=== PATIENT | male | born 1930 | race African-American/Black ===

== ENCOUNTER 2018-06-06 14:36 | Inpatient (IN) | payer OTHER ==
--- NOTE | 2018-06-06 14:56 | PDOC ---
History of Present Illness - General Chief Complaint: Wound Stated Complaint: WOUND INFECTION Time Seen by Provider: 06/06/18 14:52 History Source: Patient, [facility] Records Exam Limitations: No Limitations - History of Present Illness Initial Comments: 06/06/18 14:53 88 YOM with h/o chronic right anterior leg wound (followed by Dr. Tylor Smart for wound care), PVD, BLE venous stasis ulcers, A-fib (on Xarelto), NIDDM, HTN, hypothyroidism, and asthma who was [facility]IB[facility] from [facility] for worsening chronic BLE wounds now with malodorous drainage. He has been on Bactrim DS since for this and is on a four-week course. He has chronic abdominal distention but denies any f/c/n/v/d/c, leg pain, lightheadedness, headache, chest pain, SOB , abdominal pain, or any other new recent symptoms. Past History - Past Medical History Allergies/Adverse Reactions: Allergies Allergy/AdvReac Type Severity Reaction Status Date / Time No Known Allergies Allergy Verified 04/22/18 11:32 Home Medications: Ambulatory Orders Breo Ellipta 200-25 Mcg INH 1 puff IH ASDIR PRN 02/06/18 Finasteride 5 mg PO DAILY 02/06/18 Furosemide 20 mg PO DAILY 02/06/18 Verapamil HCl [Verapamil ER] 180 mg PO DAILY 02/06/18 Fluticasone Propionate 50 mcg IH DAILY 04/01/18 Levothyroxine Sodium 50 mcg PO DAILY 04/01/18 Metformin HCl 500 mg PO BID 04/01/18 Montelukast Na 10 mg PO DAILY 04/01/18 Naproxen 220 mg PO DAILY PRN 04/01/18 Tamsulosin HCl 0.4 mg PO DAILY 04/01/18 Sulfamethoxazole/Trimethoprim [Bactrim Ds -] 1 tab PO BID 05/06/18 Rivaroxaban [Xarelto] 15 mg PO DAILY@1800 30 Days #30 tablet 06/13/18 Asthma: Yes Diabetes: Yes HTN: Yes - Suicide/Smoking/Psychosocial Hx Smoking History: Never smoked Review of Systems - Review of Systems Able to Perform ROS?: Yes Comments:: GEN: no fever, chills, malaise, generalized weakness, or weight change HEENT: no ear pain, sore throat, vision change, or eye pain CV: no chest pain, palpitations, lightheadedness, syncope, or edema RESP: no cough, wheezing, or SOB GI: no abdominal pain, nausea, vomiting, diarrhea, constipation, or white/black/ bloody stool : no dysuria, hematuria, incontinence, retention, bleeding, or discharge MSK: BLE ulcerations, otherwise no neck/back pain, muscle weakness/pain, or joint swelling/pain NEURO: no headache, seizure, vertigo, numbness, tingling, or focal weakness PSYCH: no substance use, no behavior change SKIN: see msk, otherwise no jaundice, no other rash ROS otherwise negative except as noted in HPI *Physical Exam - Vital Signs Initial Vital Signs Temp Pulse Resp BP Pulse Ox 97.5 F L 99 H 18 119/66 100 06/06/18 14:42 06/06/18 14:42 06/06/18 14:42 06/06/18 14:42 06/06/18 14:42 - Physical Exam Comments: GENERAL: well-appearing, very talkative, in good humor, A/Ox4, no distress, answers questions appropriately HEENT: PERRLA, EOMI, moist mucous membranes NECK/BACK: no midline ttp, no spinal stepoff or deformity, no hematoma, full ROM , neck supple CARDIOVASCULAR: regular rate/rhythm, normal S1S2, no MGR, strong peripheral pulses, capillary refill <2 seconds, extremities wwp, no edema LUNGS/RESPIRATORY: no respiratory distress, CTAB GI/ABDOMEN: symmetric [id number], normoactive BS, soft, no ttp, no midline pulsatile masses : no CVA tenderness EXTREMITIES: see skin exam; otherwise no acute muscle atrophy, no acute deformity SKIN: LLE>RLE diffuse lower leg ulceration from the ankle to the distal knee, circumferentially, with very malodorous, +active drainage, dressings in place on arrival to ED as malodorous and soaked with drainage, there is otherwise skin is warm and dry, no pallor, no jaundice, no rash, no bruising, no skin breakdown, no cuts, no lesions NEUROLOGICAL: GCS 15, CN II-XII grossly intact, 5/5 strength proximally and distally, no facial droop ED Treatment Course - LABORATORY CBC & Chemistry Diagram: 06/11/18 05:50 06/12/18 07:20 Medical Decision Making - Medical Decision Making 88 YOM Pt with PVD and chronic venous stasis ulcers p/w BLE malodorous drainage and redness. Being tx with Bactrim DS PO BID x4 weeks, started on 05/24/18, no improvement. Initial Vital Signs Temp Pulse Resp BP Pulse Ox 97.5 F L 99 H 18 119/66 100 06/06/18 14:42 06/06/18 14:42 06/06/18 14:42 06/06/18 14:42 06/06/18 14:42 Exam: As noted in Physical Exam section. DDX IBNLT: cellulitis, osteomyelitis, necrotizing soft tissue infection, sepsis , DVT, superficial venous thrombosis, CHF exacerbation, PVD, pulmonary HTN, etc W/U ordered: Labs as noted below TX ordered: vancomycin, Zosyn EKG: Reviewed; results as noted in ECG Review section. RAD/CHEST X-RAY PORTABLE* Chest: Sepsis A single AP view the chest is been obtained. There is a large heart, prominent knob, scoliosis, degenerative spine and shoulder changes but no sign of infiltrate or failure. There are no prior studies for comparison. The soft tissues are intact. Laboratory Tests 06/06/18 06/06/18 06/06/18 16:40 16:40 16:40 WBC 6.1 RBC 3.33 L Hgb 10.0 L Hct 29.4 L MCV 88.2 MCH 30.0 MCHC 34.0 RDW 17.2 H Plt Count 288 MPV 7.4 L Absolute Neuts (auto) 4.8 Neutrophils % 78.2 Lymphocytes % 7.3 L Monocytes % 9.8 Eosinophils % 4.4 Basophils % 0.3 Nucleated RBC % 0 PT with INR 14.40 H INR 1.22 H PTT (Actin FS) 31.4 Sodium 134 L Potassium 4.6 Chloride 101 Carbon Dioxide 25 Anion Gap 8 BUN 24 H Creatinine 1.4 H Creat Clearance w eGFR 48.05 Random Glucose 95 Lactic Acid Calcium 8.4 L Total Bilirubin 0.4 AST 39 H ALT 63 H Alkaline Phosphatase 249 H Creatine Kinase 235 Creatine Kinase Index 2.2 CK-MB (CK-2) 5.4 H Troponin I Total Protein 7.6 Albumin 3.0 L Blood Type Antibody Screen 06/06/18 06/06/18 06/06/18 16:40 16:40 16:40 WBC RBC Hgb Hct MCV MCH MCHC RDW Plt Count MPV Absolute Neuts (auto) Neutrophils % Lymphocytes % Monocytes % Eosinophils % Basophils % Nucleated RBC % PT with INR INR PTT (Actin FS) Sodium Potassium Chloride Carbon Dioxide Anion Gap BUN Creatinine Creat Clearance w eGFR Random Glucose Lactic Acid 1.5 Calcium Total Bilirubin AST ALT Alkaline Phosphatase Creatine Kinase Creatine Kinase Index CK-MB (CK-2) Troponin I < 0.02 Total Protein Albumin Blood Type O POSITIVE Antibody Screen Negative Dressings removed; replaced by master technician. 06/06/18 17:22 The Pt is unsafe for discharge at this time. They require further hospital observation, workup, and treatment. I spoke with Dr. Dixon; patient going to IP Med/Surg. I have put in consult orders for Drs. Smart and Aden at her request. *DC/Admit/Observation/Transfer Diagnosis at time of Disposition: Venous stasis ulcer Qualifiers: Venous stasis ulcer site: unspecified site Varicose vein presence: unspecified whether present Non-pressure ulcer stage: unspecified non-pressure ulcer stage Qualified Code(s): I83.009 - Varicose veins of unspecified lower extremity with ulcer of unspecified site Infected ulcer of skin Qualifiers: Non-pressure ulcer stage: unspecified non-pressure ulcer stage Qualified Code(s ): L98.499 - Non-pressure chronic ulcer of skin of other sites with unspecified severity - Discharge Dispostion Condition at time of disposition: Guarded Decision to Admit order: Yes - Prescriptions - Referrals - Patient Instructions - Post Discharge Activity
--- NOTE | 2018-06-06 16:09 | PDOC ---
Attending Attestation - Resident Resident Name: AndieWinifred - ED Attending Attestation I have performed the following: I have examined & evaluated the patient, The case was reviewed & discussed with the resident, I agree w/resident's findings & plan - HPI HPI: 06/06/18 16:03 88y/o M h/o PVD managed at wound clinic p/w worsening b/l (L worse than R) leg wounds and new malodorous discharge. no f/c per patient. - Physicial Exam PE: 06/06/18 16:09 Alert, speaking full sentences, no acute distress Bilateral lower extremities with chronic superficial ulcerations and venous stasis changes, dressings in place and taken down, the left lower extremity has extensive weeping of grayish discharge that is malodorous, there are multiple relatively superficial lesions without any focal deep ulceration, moving all joints distally. Feet are warm and perfused but unable to palpate a pulse - Medical Decision Making 06/06/18 16:10 88-year-old male with chronic lower extremity wounds presents now with likely acute infection, will need antibiotics and debridement. No evidence of acute ischemia. Sepsis protocol IV antibiotics vancomycin and Zosyn Admission
[2018-06-06] MEDS ORDERED: VANCOMYCIN 1 GRAM (PRE-DOCKED) 1,000 MG/250 ML BAG IVPB ONE ×2 (16:32→20:25)
[2018-06-06] MEDS ORDERED: PIPERACILLIN/TAZOB 4.5 GM 4.5 GM in DEXTROSE 5%-WATER 100 ML IVPB ONE (16:32)
[2018-06-06 17:02] LABS: BASO % 0.3 % (0-2.0); EOS % 4.4 % (0-4.5); HEMATOCRIT 29.4 % (35.4-49); LYMPH % 7.3 % (8-40); MEAN CELL VOLUME 88.2 fl (80-96); MEAN PLT VOLUME 7.4 fl (7.5-11.1); MONO % 9.8 % (3.8-10.2); NEUT % 78.2 % (42.8-82.8); PLATELET COUNT 288 K/MM3 (134-434); RBC 3.33 M/mm3 (4.00-5.60); RDW 17.2 % (11.9-15.9); WHITE BLOOD COUNT 6.1 K/mm3 (4.0-10.0)
[2018-06-06 17:12] LABS: INR 1.22 (0.83-1.09); PROTHROMBIN TIME (PATIENT) 14.4 SEC (9.7-13.0)
[2018-06-06 17:15] LABS: ACTIVATED PTT 31.4 SECONDS (25.2-36.5)
[2018-06-06 17:22] LABS: ALK PHOS 249 U/L (45-117); ANION GAP 8 MMOL/L (8-16); BILIRUBIN,TOTAL 0.4 mg/dL (0.2-1); BLOOD UREA NITROGEN 24 mg/dL (7-18); CALCIUM 8.4 mg/dL (8.5-10.1); CHLORIDE 101 mmol/L (98-107); CO2 25 mmol/L (21-32); CREATININE 1.4 mg/dL (0.55-1.3); GLUCOSE,RANDOM 95 mg/dL (74-106); POTASSIUM 4.6 mmol/L (3.5-5.1); SGOT/AST 39 U/L (15-37); SGPT/ALT 63 U/L (13-61); SODIUM 134 mmol/L (136-145); TOT PROT 7.6 g/dl (6.4-8.2)
[2018-06-06] MEDS ORDERED: PIPERACILLIN/TAZOB 4.5 GM 4.5 GM/100 ML BAG IVPB ONE (20:24)
[2018-06-07 02:58] VITALS: BMI 30.6
[2018-06-07 04:14] LABS: VENOUS PC02 39.8 mmHg (38-52); VENOUS PH 7.42 (7.32-7.42)
[2018-06-07] MEDS ORDERED: metFORMIN HCL 500 MG TABLET (FP) PO ONE (06:30)
[2018-06-07] MEDS: LEVOTHYROXINE NA 50 MCG TABLET (FP) PO SCH (06:44)
--- NOTE | 2018-06-07 10:40 | HP ---
Admitting History and Physical - Primary Care Physician PCP: Liza Dixon I - Admission History Source: Patient Limitations to Obtaining History: No Limitations - Past Medical History Cardiovascular: Yes: AFIB, HTN Pulmonary: Yes: Asthma Renal/: Yes: BPH Endocrine: Yes: Diabetes Mellitus, Hypothyroidism Dermatology: Yes: Cellulitis - Smoking History Smoking history: Never smoked Have you smoked in the past 12 months: No - Alcohol/Substance Use Hx Alcohol Use: No - Social History Usual Living Arrangement: Yes: Assisted Living History of Recent Travel: No Home Medications - Allergies Allergies/Adverse Reactions: Allergies Allergy/AdvReac Type Severity Reaction Status Date / Time No Known Allergies Allergy Verified 04/22/18 11:32 - Home Medications Home Medications: Ambulatory Orders Breo Ellipta 200-25 Mcg INH 1 puff IH ASDIR PRN 02/06/18 Finasteride 5 mg PO DAILY 02/06/18 Furosemide 20 mg PO DAILY 02/06/18 Verapamil HCl [Verapamil ER] 180 mg PO DAILY 02/06/18 Fluticasone Propionate 50 mcg IH DAILY 04/01/18 Levothyroxine Sodium 50 mcg PO DAILY 04/01/18 Metformin HCl 500 mg PO BID 04/01/18 Montelukast Na 10 mg PO DAILY 04/01/18 Naproxen 220 mg PO DAILY PRN 04/01/18 Robafen Dm Cough Liquid 10 ml PO Q8H PRN 04/01/18 Tamsulosin HCl 0.4 mg PO DAILY 04/01/18 Xarelto 20 mg PO DAILY 04/01/18 Sulfamethoxazole/Trimethoprim [Bactrim DS -] 1 tab PO BID 04/29/18 Sulfamethoxazole/Trimethoprim [Bactrim Ds -] 1 tab PO BID 05/06/18 Bactrim DS - 1 tab PO BID 05/27/18 Review of Systems - Review of Systems Constitutional: reports: No Symptoms Eyes: reports: No Symptoms HENT: reports: No Symptoms Neck: reports: No Symptoms Cardiovascular: reports: No Symptoms Respiratory: reports: No Symptoms Gastrointestinal: reports: No Symptoms Genitourinary: reports: No Symptoms Breasts: reports: No Symptoms Reported Musculoskeletal: reports: Muscle Weakness Integumentary: reports: Change in Color, Wound Neurological: reports: No Symptoms Endocrine: reports: No Symptoms Hematology/Lymphatic: reports: No Symptoms Psychiatric: reports: No Symptoms Physical Examination Vital Signs: Vital Signs Temperature 97.2 F L 06/07/18 05:51 Pulse Rate 115 H 06/07/18 05:51 Respiratory Rate 20 06/07/18 05:51 Blood Pressure 128/70 06/07/18 05:51 O2 Sat by Pulse Oximetry (%) 97 06/07/18 01:00 Constitutional: Yes: Well Nourished Eyes: Yes: Conjunctiva Clear HENT: Yes: Atraumatic, Normocephalic Neck: Yes: Supple, Trachea Midline Cardiovascular: Yes: Regular Rate and Rhythm Respiratory: Yes: Regular, CTA Bilaterally Gastrointestinal: Yes: Normal Bowel Sounds, Soft ...Rectal Exam: Yes: Deferred Renal/: Yes: WNL Breast(s): Yes: WNL Musculoskeletal: Yes: Muscle Weakness Extremities: Yes: Cool Edema: Yes Edema: LLE: 1+, RLE: 1+ Peripheral Pulses WNL: No Peripheral Pulses: Left Doralis Pedis: 0, Right Dorsalis Pedis: 0 Integumentary: Yes: Venous Stasis Changes Wound/Incision: Yes: Well Approximated Neurological: Yes: Alert, Oriented Psychiatric: Yes: Alert, Oriented Labs: CBC, BMP 06/06/18 16:40 06/06/18 16:40 Assessment/Plan 88 y/o male admitted for non-healing stasis ulcers despite local wd care and antibiotics. PMHX includes HTN, Asthma, NIDDM, Hypothyroidism, Afib, PVD and B/ L venous stasis ulcers. Admitted for IV antibiotics.
[2018-06-07] MEDS: FINASTERIDE 5 MG TABLET (FP) PO SCH (11:39)
--- NOTE | 2018-06-07 12:55 | PN ---
Progress Note (short form) - Note Progress Note: ID CONSULT DICTATED CELLULITIS L>R LE INFECTED CHRONIC VENOUS STASIS ULCERS AZOTEMIA AWAIT C/S EMPIRIC VANCOMYCIN/ ZOSYN WOUND CARE
--- NOTE | 2018-06-07 13:21 | CONS ---
DATE OF CONSULTATION: DATE OF DICTATION: 06/07/2018 HISTORY: The patient is an 88-year-old male with a history of longstanding chronic venostasis dermatitis and chronic venostasis ulcers of the lower extremities evaluated for cellulitis. [facility] for chronic venostasis dermatitis and also ulcerations. Over the past several days, he has noted increasing malodorous drainage from the wounds. He was noted to have cellulitis of the legs left greater than right. The patient had been on a course of Bactrim for the past 2 weeks. He denies any leg pain. No complaints of fever or chills. PAST MEDICAL HISTORY: Positive for peripheral vascular disease, bilateral chronic venostasis dermatitis and ulcers, [id number] diabetes mellitus, atrial fibrillation, hypertension, hypothyroidism, asthma. ALLERGIES: No known allergies. MEDICATIONS: Lasix, verapamil, levothyroxine, metformin, Naproxen, tamsulosin. SOCIAL HISTORY: He lives at [facility]. He denies active tobacco or alcohol use. SYSTEMS REVIEW: Neurologic: No loss of consciousness, seizure activity, focal weakness. Cardiac: Negative chest pain or palpitations. Respiratory: Negative cough or sputum production. Gastrointestinal: Negative vomiting or diarrhea. Genitourinary: Negative for urinary tract infection. LABORATORY DATA: White count 6.1, hematocrit 29.4, platelet count 288, BUN 24, creatinine 1.4, total bilirubin 0.4, alkaline phosphatase 249, AST 39, ALT 63. PHYSICAL EXAMINATION: General: On exam, he is awake and alert. He is not acutely toxic appearing. Vital Signs: Temperature 98.2, blood pressure 114/59, pulse 105 and regular, respirations 19 per minute. HEENT: Sclerae anicteric. Heart: Sounds S1, S2. Lungs: Clear. Abdomen: Soft. Nontender. Extremities: Examination of the lower extremities, bilateral lower extremity edema. Bilateral lower extremity chronic venostasis dermatitis and superficial ulcers. There is confluent erythema and warmth present from below the knee to the foot left greater than right lower extremity. There is some malodorous, serous drainage from the lower extremities. IMPRESSION: 1. Cellulitis lower extremities bilaterally. 2. Infected chronic venostasis ulcers. 3. Azotemia. PLAN: Cultures have been obtained. Empiric antibiotic coverage with vancomycin and Zosyn adjusted for renal insufficiency. Vascular evaluation/wound care. Thank you for the kind referral. GREG HODGSON M.D. [id number]
[2018-06-07] MEDS: TIOTROPIUM BROMIDE 2.5 MCG (SPIRIVA) RESPIMAT INHALER IH SCH (14:23)
[2018-06-07] MEDS ORDERED: PIPERACILLIN/TAZOBACTAM 2.25 GM VIAL IVPB ONE (15:21)
[2018-06-07] MEDS ORDERED: DEXTROSE 5%-WATER - 100 ML IVPB ONE (15:22)
[2018-06-07] MEDS: PIPERACILLIN/TAZOB 2.25 GM 2.25 GM in DEXTROSE 5%-WATER - 50 ML IVPB SCH ×2 (15:42→17:24)
[2018-06-07] MEDS: VANCOMYCIN 1 GRAM (PRE-DOCKED) 1,000 MG/250 ML BAG IVPB SCH (15:43)
[2018-06-07] MEDS ORDERED: PT OWN MED DRAWER 7, Y5N ONE ×2 (16:31→19:26)
[2018-06-07] MEDS: VERAPAMIL HCL SR 180 MG CAP SUSTAINED RELEASE PO SCH (16:43)
[2018-06-07] MEDS: RIVAROXABAN 15 MG TABLET PO SCH (19:34)
[2018-06-07] MEDS: MONTELUKAST NA 10 MG TABLET PO SCH (21:22)
[2018-06-07] MEDS ORDERED: VERAPAMIL HCL 80 MG TABLET PO SCH (22:00)
[2018-06-08] MEDS ORDERED: DEXTROSE 5%-WATER - 50 ML IVPB ONE ×3 (01:15→17:22)
[2018-06-08] MEDS ORDERED: PIPERACILLIN/TAZOBACTAM 2.25 GM VIAL IVPB ONE ×3 (01:15→17:22)
[2018-06-08] MEDS: PIPERACILLIN/TAZOB 2.25 GM 2.25 GM in DEXTROSE 5%-WATER - 50 ML IVPB SCH ×3 (01:37→17:37)
[2018-06-08] MEDS: LEVOTHYROXINE NA 50 MCG TABLET (FP) PO SCH (06:01)
[2018-06-08] MEDS ORDERED: PT OWN MED DRAWER 7, Y5N ONE (09:02)
[2018-06-08 09:04] LABS: BASO % 0.4 % (0-2.0); EOS % 14.2 % (0-4.5); HEMATOCRIT 33.4 % (35.4-49); HEMOGLOBIN 10.6 GM/dL (11.7-16.9); MCH 28.2 pg (25.7-33.7); MCHC 31.6 g/dl (32.0-35.9); MEAN CELL VOLUME 89.3 fl (80-96); MEAN PLT VOLUME 7.1 fl (7.5-11.1); NEUT % 54.4 % (42.8-82.8); PLATELET COUNT 288 K/MM3 (134-434); RBC 3.74 M/mm3 (4.00-5.60); RDW 17.1 % (11.9-15.9); WHITE BLOOD COUNT 4.3 K/mm3 (4.0-10.0)
[2018-06-08] MEDS: TAMSULOSIN HCL 0.4 MG CAP PO SCH (09:10)
[2018-06-08] MEDS: VERAPAMIL HCL SR 180 MG CAP SUSTAINED RELEASE PO SCH (09:10)
[2018-06-08] MEDS: FINASTERIDE 5 MG TABLET (FP) PO SCH (09:10)
[2018-06-08] MEDS: TIOTROPIUM BROMIDE 2.5 MCG (SPIRIVA) RESPIMAT INHALER IH SCH (09:13)
[2018-06-08 09:32] LABS: ANION GAP 6 MMOL/L (8-16); BLOOD UREA NITROGEN 17 mg/dL (7-18); CALCIUM 8.2 mg/dL (8.5-10.1); CHLORIDE 105 mmol/L (98-107); CO2 27 mmol/L (21-32); CREATININE 1.2 mg/dL (0.55-1.3); GLUCOSE,RANDOM 100 mg/dL (74-106); POTASSIUM 4.3 mmol/L (3.5-5.1); SODIUM 137 mmol/L (136-145)
[2018-06-08] MEDS: VANCOMYCIN 1 GRAM (PRE-DOCKED) 1,000 MG/250 ML BAG IVPB SCH (14:40)
--- NOTE | 2018-06-08 16:10 | PN ---
Progress Note (short form) - Note Progress Note: patient seen and examined in room has been OOB and ambuating in room and with PT Vital Signs Period Temp Pulse Resp BP Sys/Bose Pulse Ox Last 24 Hr 97.8 F-98.5 F 83-111 17-19 102-128/54-70 96-96 neck supple heart s1/S2 irreg lungs clear bilat abd soft non tender ext-- dry scaly skin mid inner thigh and distally dressing to both LE CBC, BMP 06/08/18 08:00 06/08/18 08:00 Microbiology 06/06/18 16:40 Blood - Peripheral Venous Blood Culture - Preliminary NO GROWTH OBTAINED AFTER 24 HOURS, INCUBATION TO CONTINUE FOR 4 DAYS. 06/06/18 16:40 Blood - Peripheral Venous Blood Culture - Preliminary NO GROWTH OBTAINED AFTER 24 HOURS, INCUBATION TO CONTINUE FOR 4 DAYS. Active Medications Finasteride (Proscar -) 5 mg PO DAILY [facility] Last Admin: 06/08/18 09:10 Dose: 5 mg Vancomycin HCl (Vancomycin (Pre-Docked)) 1,000 mg in 250 mls @ 200 mls/hr IVPB Q24H [facility]; Protocol Last Admin: 06/08/18 14:40 Dose: 200 mls/hr Piperacillin Sod/Tazobactam (Sod 2.25 gm/ Dextrose) 50 mls @ 100 mls/hr IVPB Q8H-IV [facility]; Protocol Last Admin: 06/08/18 09:10 Dose: 100 mls/hr Levothyroxine Sodium (Synthroid -) 50 mcg PO DAILY@0700 [facility] Last Admin: 06/08/18 06:01 Dose: 50 mcg Montelukast Sodium (Singulair -) 10 mg PO HS [facility] Last Admin: 06/07/18 21:22 Dose: 10 mg Rivaroxaban (Xarelto) 15 mg PO DAILY@1800 [facility] Last Admin: 06/07/18 19:34 Dose: 15 mg Tamsulosin HCl (Flomax -) 0.4 mg PO DAILY@0830 [facility] Last Admin: 06/08/18 09:10 Dose: 0.4 mg Tiotropium Ava (Spiriva Respimat) 2 puff IH DAILY [facility] Last Admin: 06/08/18 09:13 Dose: 2 puff Verapamil HCl (Verelan Sr Cap) 180 mg PO DAILY [facility] Last Admin: 06/08/18 09:10 Dose: 180 mg # cellulitis LE PVD / chronic venous stasis ulcer Failure of PO ABX Wound care IV ABX vascular counsult ID counsult # DM continue Home meds # afib continue a/c home meds for rate control # COPD stable continue home meds # Hypothyroid continue home meds TSH / T4
[2018-06-08] MEDS: RIVAROXABAN 15 MG TABLET PO SCH ×2 (17:37→17:56)
[2018-06-08] MEDS: MONTELUKAST NA 10 MG TABLET PO SCH (21:20)
[2018-06-08] MEDS: MINERAL OIL/PET HY-PHL TOPICAL OINTMENT 454 GM JAR TP SCH (21:20)
[2018-06-09] MEDS ORDERED: PIPERACILLIN/TAZOBACTAM 2.25 GM VIAL IVPB ONE ×3 (00:52→16:56)
[2018-06-09] MEDS ORDERED: DEXTROSE 5%-WATER - 50 ML IVPB ONE ×3 (00:53→16:56)
[2018-06-09] MEDS: PIPERACILLIN/TAZOB 2.25 GM 2.25 GM in DEXTROSE 5%-WATER - 50 ML IVPB SCH ×3 (02:57→17:18)
[2018-06-09] MEDS: LEVOTHYROXINE NA 50 MCG TABLET (FP) PO SCH (06:02)
[2018-06-09] MEDS: TAMSULOSIN HCL 0.4 MG CAP PO SCH (08:43)
[2018-06-09] MEDS ORDERED: PT OWN MED DRAWER 7, Y5N ONE ×2 (10:41→16:59)
[2018-06-09] MEDS: FINASTERIDE 5 MG TABLET (FP) PO SCH (10:45)
[2018-06-09] MEDS: MINERAL OIL/PET HY-PHL TOPICAL OINTMENT 454 GM JAR TP SCH ×2 (10:46→21:14)
[2018-06-09] MEDS: VERAPAMIL HCL SR 180 MG CAP SUSTAINED RELEASE PO SCH (10:46)
[2018-06-09] MEDS: TIOTROPIUM BROMIDE 2.5 MCG (SPIRIVA) RESPIMAT INHALER IH SCH (10:49)
[2018-06-09] MEDS: VANCOMYCIN 1 GRAM (PRE-DOCKED) 1,000 MG/250 ML BAG IVPB SCH (14:22)
[2018-06-09] MEDS: RIVAROXABAN 15 MG TABLET PO SCH (17:18)
--- NOTE | 2018-06-09 20:00 | PN ---
Progress Note (short form) - Note Progress Note: patient seen and examined in room has been OOB and ambuating in room and with PT legs less swollen / denies pain afebrile Vital Signs Period Temp Pulse Resp BP Sys/Bose Pulse Ox Last 24 Hr 97.4 F-98.3 F 83-91 18-20 100-133/58-66 91-96 neck supple heart s1/S2 irreg lungs clear bilat abd soft non tender ext-- dry scaly skin mid inner thigh and distally dressing to both LE less edema /chronic changes to LE CBC, BMP 06/08/18 08:00 06/08/18 08:00 Microbiology 06/06/18 16:40 Blood - Peripheral Venous Blood Culture - Preliminary NO GROWTH OBTAINED AFTER 72 HOURS, INCUBATION TO CONTINUE FOR 2 DAYS. 06/06/18 16:40 Blood - Peripheral Venous Blood Culture - Preliminary NO GROWTH OBTAINED AFTER 72 HOURS, INCUBATION TO CONTINUE FOR 2 DAYS. Active Medications Emollient Ointment (Aquaphor -) 1 applic TP BID [facility] Last Admin: 06/09/18 10:46 Dose: 1 applic Finasteride (Proscar -) 5 mg PO DAILY [facility] Last Admin: 06/09/18 10:45 Dose: 5 mg Vancomycin HCl (Vancomycin (Pre-Docked)) 1,000 mg in 250 mls @ 200 mls/hr IVPB Q24H [facility]; Protocol Last Admin: 06/09/18 14:22 Dose: 200 mls/hr Piperacillin Sod/Tazobactam (Sod 2.25 gm/ Dextrose) 50 mls @ 100 mls/hr IVPB Q8H-IV [facility]; Protocol Last Admin: 06/09/18 17:18 Dose: 100 mls/hr Levothyroxine Sodium (Synthroid -) 50 mcg PO DAILY@0700 [facility] Last Admin: 06/09/18 06:02 Dose: 50 mcg Montelukast Sodium (Singulair -) 10 mg PO HS [facility] Last Admin: 06/08/18 21:20 Dose: 10 mg Rivaroxaban (Xarelto) 15 mg PO DAILY@1800 [facility] Last Admin: 06/09/18 17:18 Dose: 15 mg Tamsulosin HCl (Flomax -) 0.4 mg PO DAILY@0830 [facility] Last Admin: 06/09/18 08:43 Dose: 0.4 mg Tiotropium [place] (Spiriva Respimat) 2 puff IH DAILY [facility] Last Admin: 06/09/18 10:49 Dose: 2 puff Verapamil HCl (Verelan Sr Cap) 180 mg PO DAILY [facility] Last Admin: 06/09/18 10:46 Dose: 180 mg # cellulitis LE PVD / chronic venous stasis ulcer Failure of PO ABX Wound care IV ABX vascular counsult appreciated # DM continue Home meds # afib continue a/c home meds for rate control # COPD stable continue home meds # Hypothyroid continue home meds TSH / T4
[2018-06-09] MEDS: MONTELUKAST NA 10 MG TABLET PO SCH (21:14)
[2018-06-10] MEDS ORDERED: PIPERACILLIN/TAZOBACTAM 2.25 GM VIAL IVPB ONE ×3 (00:30→17:17)
[2018-06-10] MEDS ORDERED: DEXTROSE 5%-WATER - 50 ML IVPB ONE ×3 (00:30→17:17)
[2018-06-10] MEDS: PIPERACILLIN/TAZOB 2.25 GM 2.25 GM in DEXTROSE 5%-WATER - 50 ML IVPB SCH ×3 (02:08→17:38)
[2018-06-10] MEDS: LEVOTHYROXINE NA 50 MCG TABLET (FP) PO SCH (07:29)
[2018-06-10] MEDS: TAMSULOSIN HCL 0.4 MG CAP PO SCH (09:00)
[2018-06-10] MEDS ORDERED: PT OWN MED DRAWER 7, Y5N ONE (09:54)
[2018-06-10] MEDS: VERAPAMIL HCL SR 180 MG CAP SUSTAINED RELEASE PO SCH (10:00)
[2018-06-10] MEDS: FINASTERIDE 5 MG TABLET (FP) PO SCH (10:00)
[2018-06-10] MEDS: MINERAL OIL/PET HY-PHL TOPICAL OINTMENT 454 GM JAR TP SCH ×2 (10:01→21:21)
[2018-06-10] MEDS: TIOTROPIUM BROMIDE 2.5 MCG (SPIRIVA) RESPIMAT INHALER IH SCH (10:02)
--- NOTE | 2018-06-10 12:34 | PN ---
Progress Note (short form) - Note Progress Note: patient seen and examined in room legs less swollen / denies pain afebrile Vital Signs Period Temp Pulse Resp BP Sys/Bose Pulse Ox Last 24 Hr 97.9 F-98.5 F 80-91 18-20 100-136/61-68 95 neck supple heart s1/S2 irreg lungs clear bilat abd soft non tender ext-- dry scaly skin mid inner thigh and distally dressing to both LE less edema /chronic changes to LE CBC, BMP 06/08/18 08:00 06/08/18 08:00 Microbiology 06/06/18 16:40 Blood - Peripheral Venous Blood Culture - Preliminary NO GROWTH OBTAINED AFTER 72 HOURS, INCUBATION TO CONTINUE FOR 2 DAYS. 06/06/18 16:40 Blood - Peripheral Venous Blood Culture - Preliminary NO GROWTH OBTAINED AFTER 72 HOURS, INCUBATION TO CONTINUE FOR 2 DAYS. . Active Medications Emollient Ointment (Aquaphor -) 1 applic TP BID [facility] Last Admin: 06/10/18 10:01 Dose: 1 applic Finasteride (Proscar -) 5 mg PO DAILY [facility] Last Admin: 06/10/18 10:00 Dose: 5 mg Vancomycin HCl (Vancomycin (Pre-Docked)) 1,000 mg in 250 mls @ 200 mls/hr IVPB Q24H [facility]; Protocol Last Admin: 06/09/18 14:22 Dose: 200 mls/hr Piperacillin Sod/Tazobactam (Sod 2.25 gm/ Dextrose) 50 mls @ 100 mls/hr IVPB Q8H-IV [facility]; Protocol Last Admin: 06/10/18 09:59 Dose: 100 mls/hr Levothyroxine Sodium (Synthroid -) 50 mcg PO DAILY@0700 [facility] Last Admin: 06/10/18 07:29 Dose: 50 mcg Montelukast Sodium (Singulair -) 10 mg PO HS [facility] Last Admin: 06/09/18 21:14 Dose: 10 mg Rivaroxaban (Xarelto) 15 mg PO DAILY@1800 [facility] Last Admin: 06/09/18 17:18 Dose: 15 mg Tamsulosin HCl (Flomax -) 0.4 mg PO DAILY@0830 [facility] Last Admin: 06/10/18 09:00 Dose: 0.4 mg Tiotropium [place] (Spiriva Respimat) 2 puff IH DAILY [facility] Last Admin: 06/10/18 10:02 Dose: 2 puff Verapamil HCl (Verelan Sr Cap) 180 mg PO DAILY [facility] Last Admin: 06/10/18 10:00 Dose: 180 mg # cellulitis LE PVD / chronic venous stasis ulcer Failure of PO ABX Wound care IV ABX vascular counsult appreciated # DM continue Home meds # afib continue a/c home meds for rate control # COPD stable continue home meds # Hypothyroid continue home meds TSH / T4
[2018-06-10] MEDS: VANCOMYCIN 1 GRAM (PRE-DOCKED) 1,000 MG/250 ML BAG IVPB SCH (15:33)
--- NOTE | 2018-06-10 17:03 | PN ---
Progress Note, Physician History of Present Illness: No c/o leg pain No fever/ chills Swelling LE improved - Current Medication List Current Medications: Active Medications Emollient Ointment (Aquaphor -) 1 applic TP BID [facility] Last Admin: 06/10/18 10:01 Dose: 1 applic Finasteride (Proscar -) 5 mg PO DAILY [facility] Last Admin: 06/10/18 10:00 Dose: 5 mg Vancomycin HCl (Vancomycin (Pre-Docked)) 1,000 mg in 250 mls @ 200 mls/hr IVPB Q24H [facility]; Protocol Last Admin: 06/10/18 15:33 Dose: 200 mls/hr Piperacillin Sod/Tazobactam (Sod 2.25 gm/ Dextrose) 50 mls @ 100 mls/hr IVPB Q8H-IV [facility]; Protocol Last Admin: 06/10/18 09:59 Dose: 100 mls/hr Levothyroxine Sodium (Synthroid -) 50 mcg PO DAILY@0700 [facility] Last Admin: 06/10/18 07:29 Dose: 50 mcg Montelukast Sodium (Singulair -) 10 mg PO HS [facility] Last Admin: 06/09/18 21:14 Dose: 10 mg Rivaroxaban (Xarelto) 15 mg PO DAILY@1800 [facility] Last Admin: 06/09/18 17:18 Dose: 15 mg Tamsulosin HCl (Flomax -) 0.4 mg PO DAILY@0830 [facility] Last Admin: 06/10/18 09:00 Dose: 0.4 mg Tiotropium [place] (Spiriva Respimat) 2 puff IH DAILY [facility] Last Admin: 06/10/18 10:02 Dose: 2 puff Verapamil HCl (Verelan Sr Cap) 180 mg PO DAILY [facility] Last Admin: 06/10/18 10:00 Dose: 180 mg - Objective Vital Signs: Vital Signs Temperature 98.1 F 06/10/18 15:38 Pulse Rate 86 06/10/18 15:38 Respiratory Rate 20 06/10/18 15:38 Blood Pressure 118/66 06/10/18 15:38 O2 Sat by Pulse Oximetry (%) 94 L 06/10/18 09:00 Constitutional: Yes: No Distress Eyes: Yes: Conjunctiva Clear Cardiovascular: Yes: Regular Rate and Rhythm, S1, S2 Respiratory: Yes: CTA Bilaterally Gastrointestinal: Yes: Normal Bowel Sounds, Soft. No: Tenderness Extremities: Yes: Other (decreased bilateral L edema, less weepage) Integumentary: Yes: Other (generalized dermatitis) Labs: CBC, BMP 06/08/18 08:00 06/08/18 08:00 INR, PTT INR 1.22 (0.83-1.09) H 06/06/18 16:40 Assessment/Plan Bilateral LE cellulitis/ infected chronic venous stasis ulcers Azotemia Continue zosyn/ vancomycin Local wound care
[2018-06-10] MEDS: RIVAROXABAN 15 MG TABLET PO SCH (17:37)
[2018-06-10] MEDS: MONTELUKAST NA 10 MG TABLET PO SCH (21:21)
[2018-06-11] MEDS ORDERED: DEXTROSE 5%-WATER - 50 ML IVPB ONE ×3 (00:23→17:01)
[2018-06-11] MEDS ORDERED: PIPERACILLIN/TAZOBACTAM 2.25 GM VIAL IVPB ONE ×3 (00:23→17:01)
[2018-06-11] MEDS ORDERED: PT OWN MED DRAWER 7, Y5N ONE (00:23)
[2018-06-11] MEDS: PIPERACILLIN/TAZOB 2.25 GM 2.25 GM in DEXTROSE 5%-WATER - 50 ML IVPB SCH ×3 (01:00→17:23)
[2018-06-11 06:21] LABS: BASO % 0.3 % (0-2.0); EOS % 16.4 % (0-4.5); HEMATOCRIT 32.1 % (35.4-49); HEMOGLOBIN 10.1 GM/dL (11.7-16.9); LYMPH % 14.1 % (8-40); MCH 28.3 pg (25.7-33.7); MCHC 31.4 g/dl (32.0-35.9); MEAN CELL VOLUME 90.3 fl (80-96); MONO % 10.8 % (3.8-10.2); NEUT % 58.4 % (42.8-82.8); PLATELET COUNT 280 K/MM3 (134-434); RBC 3.55 M/mm3 (4.00-5.60); RDW 16.9 % (11.9-15.9); WHITE BLOOD COUNT 5.2 K/mm3 (4.0-10.0)
[2018-06-11] MEDS: LEVOTHYROXINE NA 50 MCG TABLET (FP) PO SCH (06:27)
[2018-06-11 07:24] LABS: ANION GAP 4 MMOL/L (8-16); BLOOD UREA NITROGEN 15 mg/dL (7-18); CALCIUM 7.5 mg/dL (8.5-10.1); CHLORIDE 104 mmol/L (98-107); CO2 29 mmol/L (21-32); CREATININE 1.1 mg/dL (0.55-1.3); GLUCOSE,RANDOM 90 mg/dL (74-106); POTASSIUM 4.1 mmol/L (3.5-5.1); SODIUM 137 mmol/L (136-145)
[2018-06-11] MEDS: TAMSULOSIN HCL 0.4 MG CAP PO SCH (08:30)
[2018-06-11] MEDS: MINERAL OIL/PET HY-PHL TOPICAL OINTMENT 454 GM JAR TP SCH ×2 (10:35→21:17)
[2018-06-11] MEDS: FINASTERIDE 5 MG TABLET (FP) PO SCH (10:36)
[2018-06-11] MEDS: VERAPAMIL HCL SR 180 MG CAP SUSTAINED RELEASE PO SCH (10:37)
[2018-06-11] MEDS: TIOTROPIUM BROMIDE 2.5 MCG (SPIRIVA) RESPIMAT INHALER IH SCH (10:39)
[2018-06-11] MEDS: VANCOMYCIN 1 GRAM (PRE-DOCKED) 1,000 MG/250 ML BAG IVPB SCH (14:51)
[2018-06-11] MEDS: RIVAROXABAN 15 MG TABLET PO SCH (17:24)
[2018-06-11] MEDS: MONTELUKAST NA 10 MG TABLET PO SCH (21:17)
--- NOTE | 2018-06-11 22:19 | PN ---
Progress Note (short form) - Note Progress Note: patient seen and examined in room legs less swollen / denies pain afebrile no chills Vital Signs Period Temp Pulse Resp BP Sys/Bose Pulse Ox Last 24 Hr 97.9 F-98.5 F 80-91 18-20 100-136/61-68 95 neck supple heart s1/S2 irreg lungs clear bilat abd soft non tender ext-- dry scaly skin mid inner thigh and distally dressing to both LE less edema /chronic changes to LE CBC, BMP 06/11/18 05:50 06/11/18 05:50 CBC, BMP 06/08/18 08:00 06/08/18 08:00 Microbiology 06/06/18 16:40 Blood - Peripheral Venous Blood Culture - Final NO GROWTH AFTER 5 DAYS INCUBATION 06/06/18 16:40 Blood - Peripheral Venous Blood Culture - Final NO GROWTH AFTER 5 DAYS INCUBATION . Active Medications Emollient Ointment (Aquaphor -) 1 applic TP BID [facility] Last Admin: 06/11/18 21:17 Dose: 1 applic Finasteride (Proscar -) 5 mg PO DAILY [facility] Last Admin: 06/11/18 10:36 Dose: 5 mg Vancomycin HCl (Vancomycin (Pre-Docked)) 1,000 mg in 250 mls @ 200 mls/hr IVPB Q24H [facility]; Protocol Last Admin: 06/11/18 14:51 Dose: 200 mls/hr Piperacillin Sod/Tazobactam (Sod 2.25 gm/ Dextrose) 50 mls @ 100 mls/hr IVPB Q8H-IV [facility]; Protocol Last Admin: 06/11/18 17:23 Dose: 100 mls/hr Levothyroxine Sodium (Synthroid -) 50 mcg PO DAILY@0700 [facility] Last Admin: 06/11/18 06:27 Dose: 50 mcg Montelukast Sodium (Singulair -) 10 mg PO HS [facility] Last Admin: 06/11/18 21:17 Dose: 10 mg Rivaroxaban (Xarelto) 15 mg PO DAILY@1800 [facility] Last Admin: 06/11/18 17:24 Dose: 15 mg Tamsulosin HCl (Flomax -) 0.4 mg PO DAILY@0830 [facility] Last Admin: 06/11/18 08:30 Dose: 0.4 mg Tiotropium [place] (Spiriva Respimat) 2 puff IH DAILY [facility] Last Admin: 06/11/18 10:39 Dose: 2 puff Verapamil HCl (Verelan Sr Cap) 180 mg PO DAILY [facility] Last Admin: 06/11/18 10:37 Dose: 180 mg # cellulitis LE PVD / chronic venous stasis ulcer Failure of PO ABX Wound care IV ABX per ID vascular counsult appreciated # DM continue Home meds # afib continue a/c home meds for rate control # COPD stable continue home meds # Hypothyroid continue home meds TSH / T4
[2018-06-12] MEDS ORDERED: DEXTROSE 5%-WATER - 50 ML IVPB ONE ×2 (01:19→10:13)
[2018-06-12] MEDS ORDERED: PIPERACILLIN/TAZOBACTAM 2.25 GM VIAL IVPB ONE ×2 (01:19→10:13)
[2018-06-12] MEDS: PIPERACILLIN/TAZOB 2.25 GM 2.25 GM in DEXTROSE 5%-WATER - 50 ML IVPB SCH ×2 (01:32→10:30)
[2018-06-12] MEDS: LEVOTHYROXINE NA 50 MCG TABLET (FP) PO SCH (06:05)
[2018-06-12 08:19] LABS: ANION GAP 5 MMOL/L (8-16); BLOOD UREA NITROGEN 15 mg/dL (7-18); CALCIUM 7.9 mg/dL (8.5-10.1); CHLORIDE 105 mmol/L (98-107); CO2 28 mmol/L (21-32); GLUCOSE,RANDOM 96 mg/dL (74-106); SODIUM 137 mmol/L (136-145)
[2018-06-12] MEDS ORDERED: PT OWN MED DRAWER 7, Y5N ONE ×2 (10:12→17:07)
[2018-06-12] MEDS: TAMSULOSIN HCL 0.4 MG CAP PO SCH (10:30)
[2018-06-12] MEDS: FINASTERIDE 5 MG TABLET (FP) PO SCH (10:31)
[2018-06-12] MEDS: MINERAL OIL/PET HY-PHL TOPICAL OINTMENT 454 GM JAR TP SCH ×2 (10:31→21:56)
[2018-06-12] MEDS: VERAPAMIL HCL SR 180 MG CAP SUSTAINED RELEASE PO SCH (10:31)
[2018-06-12] MEDS: TIOTROPIUM BROMIDE 2.5 MCG (SPIRIVA) RESPIMAT INHALER IH SCH (10:33)
[2018-06-12] MEDS: VANCOMYCIN 1 GRAM (PRE-DOCKED) 1,000 MG/250 ML BAG IVPB SCH (14:15)
--- NOTE | 2018-06-12 15:09 | PN ---
Progress Note (short form) - Note Progress Note: awake and alert no complaints day #6 antibiotics Vital Signs Period Temp Pulse Resp BP Sys/Bose Pulse Ox Last 24 Hr 97.7 F-98.6 F 86-102 18-22 111-137/53-77 95-99 skin-hyperpigmented skin changes bilateral lower extremities with venous stasis changes, no warmth, no purulent drainage cor-rrr lungs clear abd soft,nt CBC, BMP 06/11/18 05:50 06/12/18 07:20 Microbiology 06/06/18 16:40 Blood - Peripheral Venous Blood Culture - Final NO GROWTH AFTER 5 DAYS INCUBATION 06/06/18 16:40 Blood - Peripheral Venous Blood Culture - Final NO GROWTH AFTER 5 DAYS INCUBATION a/p cellulitis resolved-d/c antibiotics venous stasis ulcers- chronic- d/w Dr Smart- local care and wound care clinic f/ u per Dr Smart
--- NOTE | 2018-06-12 16:33 | PN ---
Progress Note (short form) - Note Progress Note: VAscular surgery Pt seen and examined. Bl lower extremities look good. No cellulitis no open wounds Some weeping. Please apply xeroform, 4x4, kerlex, and abiodun for compression. Please have pt followup in wound care clinic. Please make pt appt prior to DC -- [phone] Tylor Smart DO
[2018-06-12] MEDS: RIVAROXABAN 15 MG TABLET PO SCH (17:09)
--- NOTE | 2018-06-12 18:39 | PN ---
Progress Note (short form) - Note Progress Note: patient seen and examined in room legs less swollen / denies pain afebrile no chills Vital Signs Period Temp Pulse Resp BP Sys/Bose Pulse Ox Last 24 Hr 97.7 F-98.6 F 84-102 18-22 105-137/53-77 95-99 neck supple heart s1/S2 irreg lungs clear bilat abd soft non tender ext-- dry scaly skin mid inner thigh and distally dressing to both LE less edema /chronic changes to LE CBC, [facility] 06/11/18 05:50 06/12/18 07:20 CBC, BMP 06/08/18 08:00 06/08/18 08:00 Microbiology 06/06/18 16:40 Blood - Peripheral Venous Blood Culture - Final NO GROWTH AFTER 5 DAYS INCUBATION 06/06/18 16:40 Blood - Peripheral Venous Blood Culture - Final NO GROWTH AFTER 5 DAYS INCUBATION . Active Medications Emollient Ointment (Aquaphor -) 1 applic TP BID [facility] Last Admin: 06/11/18 21:17 Dose: 1 applic Finasteride (Proscar -) 5 mg PO DAILY [facility] Last Admin: 06/11/18 10:36 Dose: 5 mg Vancomycin HCl (Vancomycin (Pre-Docked)) 1,000 mg in 250 mls @ 200 mls/hr IVPB Q24H [facility]; Protocol Last Admin: 06/11/18 14:51 Dose: 200 mls/hr Piperacillin Sod/Tazobactam (Sod 2.25 gm/ Dextrose) 50 mls @ 100 mls/hr IVPB Q8H-IV [facility]; Protocol Last Admin: 06/11/18 17:23 Dose: 100 mls/hr Levothyroxine Sodium (Synthroid -) 50 mcg PO DAILY@0700 [facility] Last Admin: 06/11/18 06:27 Dose: 50 mcg Montelukast Sodium (Singulair -) 10 mg PO HS [facility] Last Admin: 06/11/18 21:17 Dose: 10 mg Rivaroxaban (Xarelto) 15 mg PO DAILY@1800 [facility] Last Admin: 06/11/18 17:24 Dose: 15 mg Tamsulosin HCl (Flomax -) 0.4 mg PO DAILY@0830 [facility] Last Admin: 06/11/18 08:30 Dose: 0.4 mg Tiotropium [place] (Spiriva Respimat) 2 puff IH DAILY [facility] Last Admin: 06/11/18 10:39 Dose: 2 puff Verapamil HCl (Verelan Sr Cap) 180 mg PO DAILY [facility] Last Admin: 06/11/18 10:37 Dose: 180 mg # cellulitis LE PVD / chronic venous stasis ulcer Failure of PO ABX Wound care IV ABX per ID will discuss change to PO vascular counsult will discuss with Dr Smart # DM continue Home meds # afib continue a/c home meds for rate control # COPD stable continue home meds # Hypothyroid continue home meds TSH / T4
[2018-06-12] MEDS: MONTELUKAST NA 10 MG TABLET PO SCH (21:54)
[2018-06-13] MEDS: LEVOTHYROXINE NA 50 MCG TABLET (FP) PO SCH (06:27)
[2018-06-13] MEDS: TAMSULOSIN HCL 0.4 MG CAP PO SCH (08:00)
[2018-06-13] MEDS ORDERED: PT OWN MED DRAWER 7, Y5N ONE (10:27)
[2018-06-13] MEDS: FINASTERIDE 5 MG TABLET (FP) PO SCH (10:36)
[2018-06-13] MEDS: VERAPAMIL HCL SR 180 MG CAP SUSTAINED RELEASE PO SCH (10:36)
[2018-06-13] MEDS: MINERAL OIL/PET HY-PHL TOPICAL OINTMENT 454 GM JAR TP SCH (10:38)
[2018-06-13] MEDS: TIOTROPIUM BROMIDE 2.5 MCG (SPIRIVA) RESPIMAT INHALER IH SCH (10:38)
--- NOTE | 2018-06-13 10:55 | DS ---
Physical Examination Vital Signs: Vital Signs Temperature 98.9 F 06/13/18 10:00 Pulse Rate 86 06/13/18 10:00 Respiratory Rate 20 06/13/18 10:00 Blood Pressure 113/57 L 06/13/18 10:00 O2 Sat by Pulse Oximetry (%) 98 06/12/18 21:00 Constitutional: Yes: Well Nourished Eyes: Yes: WNL, Conjunctiva Clear HENT: Yes: Atraumatic, Normocephalic Neck: Yes: Supple, Trachea Midline Cardiovascular: Yes: Regular Rate and Rhythm Respiratory: Yes: Regular, CTA Bilaterally Gastrointestinal: Yes: Normal Bowel Sounds, Soft ...Rectal Exam: Yes: Deferred Renal/: Yes: WNL Musculoskeletal: Yes: WNL Extremities: Yes: WNL Edema: No Peripheral Pulses WNL: Yes Integumentary: Yes: WNL Wound/Incision: Yes: Clean/Dry Neurological: Yes: Alert, Oriented ...Motor Strength: WNL Psychiatric: Yes: Alert, Oriented Labs: CBC, BMP 06/11/18 05:50 06/12/18 07:20 Discharge Summary Reason For Visit: INFECTED ULCER OF SKIN Current Active Problems Infected ulcer of skin (Acute) Venous stasis ulcer (Acute) Hospital Course: 88 Y/O M with h/o chronic right anterior leg wound (followed by Dr. Tylor Smart for wound care), PVD, BLE venous stasis ulcers, A-fib (on Xarelto), NIDDM, HTN, hypothyroidism, and asthma who was admitted for worsening chronic BLE wounds with malodorous drainage. He has been on Bactrim DS since 05/24/18. Condition: Guarded - Instructions Referrals: Liza Dixon MD [Primary Care Provider] - Disposition: HOME - Home Medications Comprehensive Discharge Medication List: Ambulatory Orders Breo Ellipta 200-25 Mcg INH 1 puff IH ASDIR PRN 02/06/18 Finasteride 5 mg PO DAILY 02/06/18 Furosemide 20 mg PO DAILY 02/06/18 Verapamil HCl [Verapamil ER] 180 mg PO DAILY 02/06/18 Fluticasone Propionate 50 mcg IH DAILY 04/01/18 Levothyroxine Sodium 50 mcg PO DAILY 04/01/18 Metformin HCl 500 mg PO BID 04/01/18 Montelukast Na 10 mg PO DAILY 04/01/18 Naproxen 220 mg PO DAILY PRN 04/01/18 Robafen Dm Cough Liquid 10 ml PO Q8H PRN 04/01/18 Tamsulosin HCl 0.4 mg PO DAILY 04/01/18 Xarelto 20 mg PO DAILY 04/01/18 Sulfamethoxazole/Trimethoprim [Bactrim DS -] 1 tab PO BID 04/29/18 Sulfamethoxazole/Trimethoprim [Bactrim Ds -] 1 tab PO BID 05/06/18 Bactrim DS - 1 tab PO BID 05/27/18
[2018-06-13 15:19] VITALS: BP 117/71; PULSE 87; TEMP 97.3
== END 2018-06-13 16:17 | disposition home or self-care (01) | DRG 300 ==
LOC: JER 14:36 → JERBED 19:41 → J5S 06-07 01:00
PROVIDERS: ADMIT Family Medicine; ATTEND Family Medicine
DX: E11.51 Type 2 diabetes mellitus with diabetic peripheral angiopathy without gangrene (principal); L03.115 Cellulitis of right lower limb; L03.116 Cellulitis of left lower limb; I10 Essential (primary) hypertension; I83.009 Varicose veins of unspecified lower extremity with ulcer of unspecified site; I48.91 Unspecified atrial fibrillation; J44.9 Chronic obstructive pulmonary disease, unspecified; E03.9 Hypothyroidism, unspecified
CPT/HCPCS: 36415; 71045-TC-FY; 80048; 80053; 82550; 82553; 82803; 82962; 83036; 83605; 84484; 85025; 85610; 85730; 86850; 86900; 86901; 87040; 97116-GP; 97161-GP; 99284-25